=== PATIENT | female | born 1940 | race Caucasian/White ===

== ENCOUNTER 2016-11-14 10:20 | Emergency (ER) | payer OTHER ==
[2016-11-14 10:40] VITALS: BP 130/100
--- NOTE | 2016-11-14 10:44 | UC ---
Respiratory Complaint HPI - HPI Summary HPI Summary: ONSET OF SOB, COARSE COUGH AND WHEEZE YESTERDAY. REMOTE H/O SMOKING. HAS SOME CHEST TIGHTNESS. H/O AFIB. NO FEVER. O2SAT 87% AFTER WALKING IN HERE. 90% AT REST. - History of Current Complaint Chief Complaint: UCRespiratory Stated Complaint: DIFFICULTY BREATHING Time Seen by Provider: 11/14/16 10:43 Hx Obtained From: Patient, Family/Kettle Worker - DAUGHTERS Onset/Duration: Sudden Onset, Lasting Days, Still Present Timing: Constant Severity Initially: Moderate Severity Currently: Moderate Pain Intensity: 0 Pain Scale Used: 0-10 Numeric Character: Cough: Productive Aggravating Factors: Deep Breaths Alleviating Factors: Nothing Associated Signs And Symptoms: Positive: Dyspnea, Wheezing - Allergies/Home Medications Allergies/Adverse Reactions: Allergies Allergy/AdvReac Type Severity Reaction Status Date / Time No Known Allergies Allergy Verified 11/14/16 10:25 PMH/Surg Hx/FS Hx/Imm Hx Endocrine History Of: Reports: Thyroid Disease, Hypothyroidism Cardiovascular History Of: Reports: Cardiac Disorders - stents, Hypertension, Atrial Fibrillation - Surgical History Surgical History: Yes Surgery Procedure, Year, and Place: stents x2 - 2000. left carotid repair - 2001 - Family History Known Family History: Positive: Cardiac Disease, Hypertension, Other - CVA - Social History Alcohol Use: None Substance Use Type: None Smoking Status (MU): Former Smoker Have You Smoked in the Last Year: No When Did the Patient Quit Smoking/Using Tobacco: 15 years ago Review of Systems Constitutional: Fatigue Respiratory: Shortness Of Breath, Cough Cardiovascular: Negative Gastrointestinal: Negative All Other Systems Reviewed And Are Negative: Yes Physical Exam Triage Information Reviewed: Yes Appearance: No Pain Distress, Well-Nourished, Ill-Appearing - MILDLY ILL APPEARING. PALE Vital Signs: Initial Vital Signs Temp 98.6 F 11/14/16 10:28 Pulse 112 11/14/16 10:28 Resp 20 11/14/16 10:28 BP 130/100 11/14/16 10:28 Pulse Ox 90 11/14/16 10:28 Eyes: Positive: Conjunctiva Clear ENT: Positive: Hearing grossly normal Neck: Positive: Supple Respiratory: Positive: No respiratory distress, No accessory muscle use, Decreased breath sounds - LEFT BASE, Wheezing Cardiovascular: Positive: Tachycardia - IRREGULARLY IRREGULAR Abdomen Description: Positive: Soft Musculoskeletal: Positive: No Edema Neurological: Positive: Alert Psychological: Positive: Normal Response To Family, Age Appropriate Behavior Skin: Negative: rashes UC Diagnostic Evaluation - Laboratory O2 Sat by Pulse Oximetry: 90 - EKG Cardiac Rate: Tachycardia - 112 BPM Cardiac Rhythm: AFib: Old - RVR Respiratory Course/Dx - Course Course Of Treatment: DISCUSSED TRANSFER TO ER BY AMBULANCE DUE TO HIGH RISK STATUS - HYPOXIA, AFIB WITH RVR. PT DECLINES. DAUGHTERS PRESENT AND ARE CONCERNED THAT AMBULANCE WOULD TRIGGER HER ANXIETY AND MAKES MATTERS WORSE. PT TO GO TO ER BY PRIVATE CAR - SIGN OUT AMA. - Differential Dx/Diagnosis Provider Diagnoses: SOB/HYPOXIA, AFIB WITH RVR - Physician Notification/Consults Discussed Patient Care With: WARREN MARTINEZ NP Time Discussed With Above Provider: 11:10 Discharge - Discharge Plan Condition: Fair Disposition: AGAINST MEDICAL ADVICE
== END 2016-11-14 11:10 | disposition left against medical advice (07) ==
LOC: UCEAST 10:20
DX: R06.02 Shortness of breath (principal); R09.02 Hypoxemia; I48.91 Unspecified atrial fibrillation; Z87.891 Personal history of nicotine dependence
CPT/HCPCS: 93005; 99212; G0463

== ENCOUNTER 2016-11-14 11:30 | Observation (INO) | payer OTHER ==
[2016-11-14] MEDS ORDERED: methylPREDNISolone 125 MG* 2 ML VIAL IV ONE (12:22)
[2016-11-14] MEDS: Albuterol/Ipratropium NEB.SOL* Albuterol 2.5 MG/Ipratropium 0.5 MG 3 ML INH SCH ×2 (12:41→12:42)
[2016-11-14 12:43] LABS: Hematocrit 44 % (35-47); Hemoglobin 14.3 g/dl (12.0-16.0); Mean Corpuscular HGB Conc 33 g/dl (31-36); Mean Corpuscular Hemoglobin 31 pg (27-31); Mean Corpuscular Volume 95 fL (80-97); Mean Platelet Volume 9 um3 (7.4-10.4); Red Blood Count 4.57 10^6/ul (4.0-5.4); Red Cell Distribution Width 14 % (10.5-15)
--- NOTE | 2016-11-14 12:43 | RAD ---
INDICATION: Short of breath COMPARISON: None TECHNIQUE: PA and lateral dual-energy views were obtained. FINDINGS: Bones/Soft Tissues: There are no acute bony findings. There is osteopenia with kyphosis Cardiomediastinal: The cardiomediastinal silhouette is normal. Lungs: There are no infiltrates. Pleura: There are no pleural effusions. Other: None IMPRESSION: NO ACTIVE DISEASE.
[2016-11-14 12:46] LABS: Albumin 4.5 g/dL (3.2-5.2); BUN/Creatinine Ratio 19.2 (8-20); C Reactive Protein 25.76 mg/L (< 5.00); Calcium 9.6 mg/dL (8.6-10.3); EGFR Non-African American 77.7 (>60); Globulin 3.2 g/dL (2-4); Potassium 3.9 mmol/L (3.5-5.0); Total Bilirubin 0.8 mg/dL (0.2-1.0); Total Protein 7.7 g/dL (6.4-8.9)
[2016-11-14 12:48] LABS: Troponin I 0.01 ng/mL (<0.04)
[2016-11-14] MEDS ORDERED: Diltiazem DRIP* 100 MG/100 ML ADDV.BAG IVPB ONE (13:23)
[2016-11-14] MEDS ORDERED: Levofloxacin 750 MG IVPREMIX(* 750 MG/150 ML BAG IVPB ONE (13:39)
[2016-11-14] MEDS ORDERED: Acetaminophen TAB* 325 MG PO PRN (13:39)
[2016-11-14] MEDS ORDERED: Ondansetron INJ* 2 MG/ML VIAL IV PRN (13:39)
--- NOTE | 2016-11-14 14:48 | ED ---
Eladio Méndez Billy, scribed for Kush Pulliam MD on 11/14/16 at 1217 . Respiratory - HPI Summary HPI Summary: Patient is a 76 year-old female coming to [facility] presenting with intermittent SOB and wheezing starting 3 days. She states she will occasionally cough with deep breaths or when she "runs out of breath." Denies chest pain at this time. Denies history of COPD or asthma. - History of Current Complaint Chief Complaint: EDShortnessOfBreath Stated Complaint: DIFF BREATHING Time Seen by Provider: 11/14/16 12:11 Hx Obtained From: Patient Onset/Duration: Gradual Onset, Lasting Days, Still Present Timing: Intermittent Episodes Lasting: Initial Severity: Moderate Current Severity: Moderate Character: Wheezing, Cough (Nonproductive), Dyspnea at Rest Sputum Amount: None Aggravating Factor(s): Deep Breaths Alleviating Factor(s): Nothing Associated Signs and Symptoms: SOB, Wheezing - Allergy/Home Medications Allergies/Adverse Reactions: Allergies Allergy/AdvReac Type Severity Reaction Status Date / Time No Known Allergies Allergy Verified 11/14/16 10:25 PMH/Surg Hx/FS Hx/Imm Hx Endocrine/Hematology History: Reports: Hx Thyroid Disease Cardiovascular History: Reports: Hx Hypertension - Surgical History Surgery Procedure, Year, and Place: stents x2 - 2000. left carotid repair - 2001 Infectious Disease History: No Infectious Disease History: Denies: Traveled Outside the [place] in Last 30 Days - Family History Known Family History: Positive: Cardiac Disease, Hypertension, Other - CVA - Social History Alcohol Use: None Substance Use Type: Reports: None Smoking Status (MU): Former Smoker Have You Smoked in the Last Year: No Review of Systems Negative: Fever, Chills Negative: Chest Pain Positive: Shortness Of Breath, Cough, Other - wheezing All Other Systems Reviewed And Are Negative: Yes Physical Exam - Summary Physical Exam Summary: VITAL SIGNS: Reviewed. GENERAL: Patient is an elderly fragile female with some distress secondary to the shortness of breath. However, she is able to speak in full sentences. HEAD AND FACE: Normocephalic and atraumatic. EYES: PERRLA, EOMI x 2, No injected conjunctiva. EARS: Hearing grossly intact. Ear canals and tympanic membranes WNL MOUTH: Dry oral mucosa. NECK: Supple, trachea is midline, no adenopathy, no JVD, no carotid bruit. CHEST: Symmetric, No intercostal or abdominal retraction, LUNGS: Diffuse bilateral wheezing and decreased breath sounds and positive bilateral basilar crackles. CVS: IRR,, S1 and S2 present, no murmurs or gallops appreciated. ABDOMEN: Soft, non-tender. No signs of distention. Positive BS. No rebound, no guarding, and no masses palpated. EXTREMITIES: FROM in all major joints, no edema, no cyanosis or clubbing. NEURO: Alert and oriented x 3. No acute neurological deficits. Speech is normal and follows commands. SKIN: Dry and warm Triage Information Reviewed: Yes Vital Signs On Initial Exam: Initial Vitals Temp Pulse Resp BP Pulse Ox 97.9 F 63 16 156/98 94 11/14/16 11:30 11/14/16 11:30 11/14/16 11:30 11/14/16 11:30 11/14/16 11:30 Vital Signs Reviewed: Yes - [place] Coma Scale Coma Scale Total: 15 Diagnostics - Vital Signs Vital Signs Temp Pulse Resp BP Pulse Ox 11/14/16 11:30 97.9 F 63 16 156/98 94 - Laboratory Lab Results: Lab Results 11/14/16 11/14/16 11/14/16 Range/Units 11:49 11:49 11:49 WBC 16.0 H (3.5-10.8) 10^3/ul RBC 4.57 (4.0-5.4) 10^6/ul Hgb 14.3 (12.0-16.0) g/dl Hct 44 (35-47) % MCV 95 (80-97) fL MCH 31 (27-31) pg MCHC 33 (31-36) g/dl RDW 14 (10.5-15) % Plt Count 288 (150-450) 10^3/ul MPV 9 (7.4-10.4) um3 Neut % (Auto) 86.3 H (38-83) % Lymph % (Auto) 5.9 L (25-47) % [place] % (Auto) 7.1 (1-9) % Eos % (Auto) 0.2 (0-6) % Baso % (Auto) 0.5 (0-2) % Absolute Neuts (auto) 13.8 H (1.5-7.7) 10^3/ul Absolute Lymphs (auto) 0.9 L (1.0-4.8) 10^3/ul Absolute Monos (auto) 1.1 H (0-0.8) 10^3/ul Absolute Eos (auto) 0 (0-0.6) 10^3/ul Absolute Basos (auto) 0.1 (0-0.2) 10^3/ul Absolute Nucleated RBC 0.01 10^3/ul Nucleated RBC % 0 Sodium 132 L (133-145) mmol/L Potassium 3.9 (3.5-5.0) mmol/L Chloride 97 L (101-111) mmol/L Carbon Dioxide 29 (22-32) mmol/L Anion Gap 6 (2-11) mmol/L BUN 14 (6-24) mg/dL Creatinine 0.73 (0.51-0.95) mg/dL Est GFR ( Amer) 100.0 (>60) Est GFR (Non-Af Amer) 77.7 (>60) BUN/Creatinine Ratio 19.2 (8-20) Glucose 133 H (70-100) mg/dL Lactic Acid 1.4 (0.5-2.0) mmol/L Calcium 9.6 (8.6-10.3) mg/dL Total Bilirubin 0.80 (0.2-1.0) mg/dL AST 23 (13-39) U/L ALT 22 (7-52) U/L Alkaline Phosphatase 97 (34-104) U/L Total Creatine Kinase 163 (10-223) U/L Troponin I 0.01 (<0.04) ng/mL C-Reactive Protein 25.76 H (< 5.00) mg/L Total Protein 7.7 (6.4-8.9) g/dL Albumin 4.5 (3.2-5.2) g/dL Globulin 3.2 (2-4) g/dL Albumin/Globulin Ratio 1.4 (1-3) Result Diagrams: 11/14/16 11:49 11/14/16 11:49 Lab Statement: Any lab studies that have been ordered have been reviewed, and results considered in the medical decision making process. - Radiology CXR Xray Interpretation: No Acute Changes Radiology Interpretation Completed By: Radiologist - EKG 1143 EKG Interpretation: afib 116 bpm with RVR, no ST elevation Re-Evaluation - Re-Evaluation First Eval Re-Evaluation Time: 13:43 Comment: Plan for admission reviewed. Labs and imaging discussed. Disposition - Course Assessment/Plan: Patient is a 76 year-old female coming to [facility] presenting with intermittent SOB and wheezing starting 3 days. She states she will occasionally cough with deep breaths or when she "runs out of breath." Denies chest pain at this time. Denies history of COPD or asthma. Bloodwork WNL except for WBC of 16 and CRP of 25. BNP is 375 and sodium 132. CXR shows no acute pathology. EKG shows afib with RVR. Physical exam: patient is wheezing and has some crackles in the bases, therefore I placed patient on Levaquin. I believe she may be developing pneumonia vs bronchitis. She is also in afib with RVR so she was given cardiazem. I discussed my physical exam findings with Dr. Stinson who will accept the patient for admission to the hospitalist services. She is alert and oriented x3 and hemodynamically stable. - Differential Dx - Cardiopulmonary Differential Diagnoses - Cardiopulmonary: Asthma, Bronchitis, CHF, Other - Pneumonia - Diagnoses Provider Diagnoses: clinical pneumonia, Atrial fibrillation with RVR - Physician Notifications Discussed Care Of Patient With: Dr. Stinson (hospitalist) @ 1338: accepts admission. Discharge - Discharge Plan Condition: Stable Disposition: ADMITTED TO [facility] The documentation as recorded by the Eladio lynn Billy accurately reflects the service I personally performed and the decisions made by me, Kush Pulliam MD.
[2016-11-14] MEDS ORDERED: Metoprolol Tartrate IV* 1 MG/ML 5 ML VIAL IV ONE (16:44)
[2016-11-14] MEDS ORDERED: Albuterol/Ipratropium NEB.SOL* Albuterol 2.5 MG/Ipratropium 0.5 MG 3 ML INH PRN (16:46)
[2016-11-14] MEDS: NS 0.9% 1000 ML* 1,000 ML IV SCH (18:26)
[2016-11-14] MEDS: Diltiazem TAB* 30 MG PO SCH (18:26)
[2016-11-14] MEDS: Heparin VIAL(*) 5000 UNITS/ML VIAL (FIVE THOUSAND) SUBCUT SCH (21:48)
[2016-11-14] MEDS: Docusate CAP* 100 MG PO SCH (21:48)
[2016-11-15] MEDS: Diltiazem TAB* 30 MG PO SCH ×3 (00:40→12:50)
[2016-11-15 04:28] LABS: Urine Bacteria Absent (Absent); Urine Bilirubin Negative (Negative); Urine Glucose Negative (Negative); Urine Nitrite Negative (Negative)
[2016-11-15] MEDS: Heparin VIAL(*) 5000 UNITS/ML VIAL (FIVE THOUSAND) SUBCUT SCH (05:33)
[2016-11-15 05:36] LABS: Hematocrit 41 % (35-47); Hemoglobin 13.2 g/dl (12.0-16.0); Mean Corpuscular HGB Conc 33 g/dl (31-36); Mean Corpuscular Hemoglobin 31 pg (27-31); Mean Corpuscular Volume 94 fL (80-97); Mean Platelet Volume 10 um3 (7.4-10.4); Red Cell Distribution Width 14 % (10.5-15); White Blood Count 13.6 10^3/ul (3.5-10.8)
[2016-11-15 05:47] LABS: Albumin 4.1 g/dL (3.2-5.2); BUN/Creatinine Ratio 19.7 (8-20); Calcium 9.7 mg/dL (8.6-10.3); EGFR African American 103.2 (>60); EGFR Non-African American 80.3 (>60); Total Bilirubin 0.7 mg/dL (0.2-1.0); Total Protein 7.1 g/dL (6.4-8.9)
[2016-11-15 07:28] VITALS: BP 179/81
[2016-11-15] MEDS: Docusate CAP* 100 MG PO SCH (07:43)
[2016-11-15] MEDS ORDERED: Aspirin EC Low Dose* 81 MG TAB.EC PO SCH (09:00)
[2016-11-15] MEDS ORDERED: Metoprolol Succinate XL TAB* 50 MG PO SCH (09:00)
[2016-11-15] MEDS ORDERED: Levothyroxine TAB* 100 MCG TAB PO SCH (09:00)
[2016-11-15] MEDS ORDERED: Atorvastatin* 80 MG TAB PO SCH (09:00)
[2016-11-15] MEDS: NS 0.9% 1000 ML* 1,000 ML IV SCH (09:08)
--- NOTE | 2016-11-15 10:43 | RAD ---
INDICATION: Possible pneumonia COMPARISON: November 14, 2016 TECHNIQUE: An AP portable view obtained at 1030 hours is submitted. FINDINGS: Bones/Soft Tissues: There are no acute bony findings. Cardiomediastinal: The cardiomediastinal silhouette is mildly prominent. Lungs: There are no infiltrates. Pleura: There are no pleural effusions. Other: None IMPRESSION: NO ACTIVE DISEASE.
[2016-11-15] MEDS ORDERED: Albuterol HFA INHALER* 8 gm MDI INH PRN (11:29)
[2016-11-15] MEDS ORDERED: Albuterol HFA INHALER* 8 gm MDI INH ONE (11:31)
[2016-11-15 12:45] LABS: TSH (Thyroid Stimulating Horm) 1.83 mcIU/mL (0.34-5.60)
--- NOTE | 2016-11-15 20:40 | PN ---
Hospitalist Progress Note . HOSPITALIST DISCHARGE NOTE: See dc instructions and summary by me. Patient stable for dc dc instructions reviewed with the patient at the bedside. DC patient home today.
--- NOTE | 2016-11-15 23:54 | HP ---
HISTORY AND PHYSICAL AND DISCHARGE SUMMARY: DATE OF ADMISSION: 11/14/16 DATE OF DISCHARGE: 11/15/16 STATUS: Observation. CHIEF COMPLAINT: Shortness of breath - progressive with subsequently confusion during the hospitalization and concern for ongoing progressive dementia unmasked by her current illness. HISTORY OF PRESENT ILLNESS: Ms. Toure is a pleasant 76-year-old female who presented to the emergency room on 11/14/16 with progressive and intermittent shortness of breath with some wheezing over the past 3 days. In speaking with the patient, she states that she started not feeling herself since sometime after [place] and was very vague about the exact time of onset. She thinks she might have actually started feeling poorly after New Year's, but she could not be exactly sure. Certainly, for the past 10 days, she has been getting progressively more short of breath, but really in the past 3 days, has started getting worse with some wheezing, but not much. There was no fever. I asked the patient if she tried any [id number] therapies and she said she had not . The family had not noticed she was having any respiratory difficulty, but they did notice she was not eating her usual amount and she did complain of having less energy than normal. The patient also felt that her stomach might have been a little "off" and that she was not sleeping as well as she normally does. For all of these reasons and when she started feeling progressively short of breath on 11/14/16, the patient came to the [facility] ED and made the complaints above. The patient was found to be found quite tachycardic and in atrial fibrillation. It was noted the patient is in chronic atrial fibrillation and takes metoprolol and Coumadin and this is a chronic problem for her, but her rate was in the 130s and the patient felt quite short of breath. She was dosed with IV antibiotics (specifically IV Levaquin) and received IV steroids as well and was referred for admission to the hospitalist service on the evening of 11/14/16 and this was accomplished. The patient felt subjectively better after a DuoNeb therapy in the emergency room and the plan was for admission and stabilization through 11/16/16 giving her ample time for full recovery. PAST MEDICAL HISTORY: 1. Myocardial infarction greater than 10 years ago, treated at [facility]. 2. Carotid artery disease with left carotid artery repair in 2001. 3. Chronic atrial fibrillation with reference in the medical record back in 2011 and perhaps longer. 4. Hypothyroidism - on Synthroid replacement. No history of lung disease. No history of diabetes or history of pneumonia. The patient has no history of stroke or neurologic deficits. FAMILY HISTORY: It is positive for cardiac disease and hypertension on both sides of her family. The patient lives with her . She is a former smoker, but he has not smoked for years. She does not drink alcohol meaningfully and none recently and she is accompanied by her three children all of whom live in the area. They are in good health. Her surrogate decision maker is her daughter, Bree, who could be reached at [phone]. The patient is a full code. She handles all of her activities of daily living and all of her IADL's too. PHYSICAL EXAMINATION GENERAL APPEARANCE: A no apparent distress. appears stated age. VITAL SIGNS: Temperature 97.9 degrees Fahrenheit, pulse rate was 120s to 130s, in atrial fibrillation in the emergency room, respirations were 16 to 20 and regular. There was no extremis noted. Her oxygen saturation was preserved > 95 % on 2 L nasal cannula and her blood pressure was robust in the 120/80. HEENT: Oropharynx is clear. Mucous membranes are moist. No posterior pharyngeal erythema. NECK: Supple. No elevated JVD. I note the carotid artery surgery scar - clean dry and intact. No bruits appreciated. CHEST: Clear anteriorly without wheezing. I note the patient had a DuoNeb treatment in the emergency room and they reported she was breathing more easily after that. There was wheezing reported before that. She also received IV steroids, but she seemed in no distress to me and nor that I appreciate any wheezing. No rhonchorous sounds noted. good air movement overall. HEART: Tachy with irregular rate, confirmed by telemetry monitoring in room. No murmurs appreciated. ABDOMEN: Soft and nontender. EXTREMITIES: Well perfused and nonedematous. She had normal muscle tone. NEUROLOGIC: She was not exhibiting any neurologic deficits and she was in in good spirits and awake, alert and oriented x3. ADMISSION DATA: White blood cell count elevated 16.0, hemoglobin 14.3, platelets 288, 86% neutrophilia. Coagulation: INR 2.19 (on Coumadin). Sodium 132, potassium 3.9, chloride 97, bicarb 29, BUN 14, creatinine 0.73, glucose 133 (elevated). Lactic acid 1.4. LFTs normal. CRP elevated at 25.76, BNP 375 (elevated, no prior value to compare this). Total protein and albumin are 7.7 and 4.5, respectively. TSH 1.83. Urinalysis with 1+ rbc's, but trace wbc's and trace ketones. Chest x-ray showed no active disease in the pulmonary parenchyma. Generally unremarkable. Her EKG is atrial fibrillation at 116 beats per minute with no evidence of acute ischemia. IMPRESSION: Ms. Toure is a 76-year-old female with known atrial fibrillation who now presents with ongoing shortness of breath and weakness, malaise, difficulty sleeping, leukocytosis -- her wheezing improved after DuoNeb therapy -- and worsening of her atrial fibrillation rate control consistent with an inflammatory state who is appropriate for admission to the hospital to treat her respiratory infection and control her heart rate. She is accompanied by her concerned family who agree with admission. PLAN BY MEDICAL PROBLEM: 1. Acute Bronchitis vs Early Pneumonia without infiltrate. - Certainly, the white blood cell count and the tachycardia are consistent with perhaps a pneumonia although I do not seen an infiltrate on the chest x-ray. It may be the case that the patient is a bit dehydrated and it is early in the course and one may evolve. The patient already received antibiotics to include atypical coverage as well as IV steroids for concern of wheezing. I think it is appropriate to bring the patient into the hospital and have her in a monitored environment where she can receive further nebulizer treatment and undergo rehydration. 2. With respect to her atrial fibrillation, she is chronically in atrial fibrillation and anticoagulated. The rapid rate is probably the result of her respiratory illness and in treating the respiratory illness and rehydrating her , I believe this will slowly come under control. The emergency room started an IV Diltiazem drip and I will wean this off over the next few hours and I think she will do well with respect to this. Other medications will be continued including her thyroid replacement and further clinical decisions will be made based on her progress. CLINICAL PROGRESS AND HOSPITAL COURSE / DISCHARGE:SUMMARY On 11/15/16, overnight, did somewhat poorly. She had a difficult time sleeping and had some hallucinations and vivid dreams that were disturbing including her belief that she "wrecked her room" and she was quite confused to her family which they came in the next day. We had a long discussion about this and it is likely multifactorial including two of the medications she received including the IV steroids and the IV levofloxacin which both are known to cause confusion and even psychosis in the elderly. Beyond this, a respiratory infection itself could cause confusion in the elderly as can simply being in the hospital. The patient's atrial fibrillation responded nicely to the diltiazem. This was weaned off and the patient's labs all normalized with restorationism of a normal sodium and potassium concentration with normal renal function demonstrated and a decrease in her leukocytosis. Clinically, the patient's breathing is more comfortable. There was no wheezing appreciated overnight and nor that I personally appreciate any wheezing at admission, but she had already received DuoNebs and steroids. I agree to continue with the patient for a short course of antibiotics, but I will choose a different agent. We discussed Augmentin for 5 days and this seems like a reasonable choice with less tendency to cause confusion in the elderly. I am intentionally NOT going to continue steroids because she has no wheezing and the patient is entirely comfortable after only one dose in the emergency room and I think that might have contributed to her confusion. I think reorienting her in her normal setting will be s good idea. I placed a courtesy call to Dr. Frances Coles to report this and I asked the family, and in particular her daughter Perri, to arrange a FOLLOW UP appointment sometime this week with Dr. Coles for re- evaluation. In terms of her atrial fibrillation control, the patient can continue on 100 mg metoprolol in the outpatient setting and this was originally thought to represent an increase, but it was later found that the patient's usual dose of Toprol is indeed 100 mg by mouth in the evening. She only received 50 mg on the morning of 11/15/16 and did well with that from a rate perspective DISCHARGE DIAGNOSES: 1. Acute bronchitis with initial wheezing that resolved after steroids and DuoNebs. 2. Rapid atrial fibrillation in midst of respiratory distress - now rate controlled and already anticoagulated. 3. Hospital associated delirium with iatrogenic component secondary to Levaquin , steroids and unusual (hospital) environment. 4. Possibly mild dementia with tendency for delirium in setting of this acute illness. MEDICATION REGIMEN AT DISCHARGE: 1. Acetaminophen 650 mg by mouth every 4 hours as needed for pain/fever (over- the- counter). 2. Amoxicillin clavulanic acid (Augmentin) 875 mg by mouth twice daily for 5 days, then stop - electronically prescribed to her pharmacy - [facility]). 3. Albuterol inhaler 2 puffs every 4 hours as needed (prescribed in hospital and inhaler was given to the patient to take home along with a spacer). 4. Nitrostat 0.4 mg sublingually every 4 hours as needed for chest pain - only if needed. 5. B complex vitamin 1 tablet by mouth once daily. 6. Vitamin D3 one capsule by mouth once daily. 7. Levothyroxine 200 mcg by mouth daily. 8. Lipitor 80 mg by mouth daily. 9. Coumadin 5 mg by mouth daily. 10. Aspirin 81 mg by mouth daily. 11. Mavik/Trandolapril 4 mg by mouth daily. 12. Metoprolol 100 mg by mouth daily (as previously). Ms. Toure and her family were extensively counseled at discharge and asked to come back to the emergency room if there are any worrisome symptoms including , but not limited to worsening shortness of breath, high fevers, or worsening confusion that does not resolve with reorientation. They said they will comply with this instruction. TIME SPENT: Total time taken to admit Ms. Toure was 65 minutes, greater than half the time spent in the emergency room going over the admission and history with a plan of care discussed as above. The total time taken to discharge Ms. Toure on 11/15/16 was separately 45 minutes with much greater than half that time spent going over the discharge instructions and explaining the multifactorial nature of her in-hospital delirium. CONDITION ON DISCHARGE: Stable. [id number]/[facility] #: [id number] [facility]
== END 2016-11-15 13:25 | disposition home or self-care (01) ==
LOC: ED 11:30 → MEDTELE 13:39 → INTOOBSV 13:39
PROVIDERS: ADMIT Internal Medicine; ATTEND Internal Medicine
DX: J20.9 Acute bronchitis, unspecified (principal); R06.02 Shortness of breath; R00.1 Bradycardia, unspecified; I25.2 Old myocardial infarction; I25.10 Atherosclerotic heart disease of native coronary artery without angina pectoris; I10 Essential (primary) hypertension; I48.91 Unspecified atrial fibrillation; E03.9 Hypothyroidism, unspecified; Z79.01 Long term (current) use of anticoagulants; Z79.899 Other long term (current) drug therapy; Z95.5 Presence of coronary angioplasty implant and graft; Z87.891 Personal history of nicotine dependence; I49.3 Ventricular premature depolarization
CPT/HCPCS: 36415; 71010; 71020; 80053; 81003; 81015; 82550; 83605; 83880; 84443; 84484; 85025; 85610; 86140; 87040; 93005; 94640; 94760; 96365; 96372; 96375; 99212; 99284; A9270-GY; G0378; G0463; J1644; J2930; J3490

== ENCOUNTER 2019-01-10 20:45 | Emergency (ER) | payer OTHER ==
[2019-01-10] MEDS ORDERED: NS 0.9% 1000 ML** 1,000 ML IV ONE (21:11)
--- NOTE | 2019-01-10 21:31 | ED ---
GI/ HPI - HPI Summary HPI Summary: The patient is a 78 y/o F presenting to [facility] with a chief complaint of sudden onset loose diarrhea tonight around 1600. She had an urge to have a BM but couldn't make it to the bathroom in time. She later had smaller BMs, and was not incontinent at that time. She additionally c/o lightheadedness and diaphoresis. She denies fevers, chills, nausea, vomiting, abd pain, hematochezia , dysuria, and hematuria. Throughout the day, she ate normally, and she had taken two extra strength Tylenol for upper back pain (the patient's daughter called her PCP to confirm it was okay), which was prior to the episodes of diarrhea. She also fell two days ago, causing her to endure pain in her knees, especially the right one, which she has difficulty bearing weight on now; she did not hit her head. - History of Current Complaint Chief Complaint: EDNauseaVomitDiarrh Time Seen by Provider: 01/10/19 21:11 Stated Complaint: GENERAL ILLNESS PER EMS Hx Obtained From: Patient Onset/Duration: Started Hours Ago, Still Present Timing: Lasting Hours Severity: Moderate Current Severity: Mild Pain Intensity: 0 Associated Signs and Symptoms: Positive: Back Pain - upper, Diarrhea, Diaphoresis, Lightheadedness, Other: - difficulty with weight-bearing on right knee. Negative: Nausea, Vomiting, Blood w/Stool, Fever, Hematuria, Dysuria, Change in Appetite, Chills, Abdominal Pain Aggravating Factor(s): Nothing Alleviating Factor(s): Nothing - Allergy/Home Medications Allergies/Adverse Reactions: Allergies Allergy/AdvReac Type Severity Reaction Status Date / Time No Known Allergies Allergy Verified 11/14/16 10:25 PMH/Surg Hx/FS Hx/Imm Hx Endocrine/Hematology History: Reports: Hx Thyroid Disease - hypothyroid Cardiovascular History: Reports: Hx Hypercholesterolemia, Hx Hypertension, Other Cardiovascular Problems/Disorders - 2x stents, 2x IA Sensory History: Reports: Hx Contacts or Glasses Opthamlomology History: Reports: Hx Contacts or Glasses - Surgical History Surgery Procedure, Year, and Place: stents x2 - 2000. left carotid repair - 2001 Infectious Disease History: No Infectious Disease History: Denies: Traveled Outside the [place] in Last 30 Days - Family History Known Family History: Positive: Cardiac Disease, Hypertension, Other - CVA - Social History Alcohol Use: Rare Substance Use Type: Reports: None Smoking Status (MU): Former Smoker Have You Smoked in the Last Year: No Review of Systems Positive: Skin Diaphoresis. Negative: Fever, Chills Positive: Diarrhea - with one episode of incontinence, Other - NEGATIVE: hematochezia. Negative: Abdominal Pain, Vomiting, Nausea Negative: dysuria, hematuria Positive: Other - upper back pain, pain in right knee s/p fall two days ago Neurological: Other - lightheaded All Other Systems Reviewed And Are Negative: Yes Physical Exam - Summary Physical Exam Summary: Appearance: Well-appearing, Well-nourished, lying in bed comfortably Skin: Warm, dry, no obvious rash Eyes: sclera anicteric, no conjunctival pallor ENT: mucous membranes moist, pharynx appears normal Neck: Supple, nontender Respiratory: Clear to auscultation, no signs of respiratory distress Cardiovascular: Normal S1, S2. No murmurs. Normal distal pulses in tibial and radial bilaterally. Abdomen: Soft, nontender, normal active bowel sounds present Musculoskeletal: Normal, Strength/ROM Intact Neurological: A&Ox3, awake and alert, mentation is normal, speech is fluent and appropriate Psychiatric: affect is normal, does not appear anxious or depressed Triage Information Reviewed: Yes Vital Signs On Initial Exam: Initial Vitals Temp Pulse Resp BP Pulse Ox 99 F 87 16 134/78 98 01/10/19 20:50 01/10/19 20:50 01/10/19 20:50 01/10/19 20:50 01/10/19 20:50 Vital Signs Reviewed: Yes Diagnostics - Vital Signs Vital Signs Temp Pulse Resp BP Pulse Ox 01/10/19 20:50 99 F 87 16 134/78 98 - Laboratory Result Diagrams: 01/10/19 21:28 01/10/19 21:28 Lab Statement: Any lab studies that have been ordered have been reviewed, and results considered in the medical decision making process. - Radiology Knee XR Radiology Interpretation Completed By: Radiologist Summary of Radiographic Findings: No facture present. ED physician has reviewed this report. Re-Evaluation - Re-Evaluation First Eval Re-Evaluation Time: 02:00 Change: Unchanged Comment: I spoke with the patient and her family concerning discharge. GIGU Course/Dx - Course Course Of Treatment: The patient is a 78 y/o F with a chief complaint of sudden onset loose diarrhea tonight around 1600. She additionally c/o lightheadedness and diaphoresis. She denies fevers, chills, nausea, vomiting, abd pain, hematochezia, dysuria, and hematuria. Throughout the day, she ate normally, and she took two extra strength Tylenol for upper back pain, prior to diarrhea. She has difficulty bearing weight on her right knee after falling two days ago. Upon physical exam, the patient exhibits no acute abnormalities. In the ED course, the patient was administered Ns and Macrodantin. Bloodwork reveals slightly elevated monos, creatinine, and glucose. UA reveals trace ketones, blood leukocyte esterase, and hyaline casts. Knee XR is negative. The patient is diagnosed with UTI and knee sprain. She will be discharged home with prescription for Nitrofurantoin and follow up with PCP. She agrees with this plan and understands the need for return to the emergency department for any new or worsening symptoms. - Diagnoses Provider Diagnoses: Knee sprain, UTI (urinary tract infection) Discharge - Sign-Out/Discharge Documenting (check all that apply): Patient Departure - Patient will be discharged home. Patient Received Moderate/Deep Sedation with Procedure: No - Discharge Plan Condition: Good Disposition: HOME Prescriptions: Nitrofurantoin Macrocrystal [Nitrofurantoin] 100 mg PO BID 7 Days #14 capsule Patient Education Materials: Knee Sprain (ED), Urinary Tract Infection in Women (ED), Fall Prevention for Older Adults (ED) Referrals: Frances Coles MD [Primary Care Provider] - 3 Days (to check on status of the urine culture, particularly if not improving) Additional Instructions: Follow up with your primary care provider in 3 days. Return to the emergency department for any new or worsening symptoms. - Billing Disposition and Condition Condition: GOOD Disposition: Home - Attestation Statements Document Initiated by Scribe: Yes Documenting Scribe: Renetta James Provider For Whom Clara is Documenting (Include Credential): Dr. Bro Adam MD Scribe Attestation: Renetta Méndez scribed for Dr. Bro Adam MD on 01/11/19 at 0451. Scribe Documentation Reviewed: Yes Provider Attestation: The documentation as recorded by the Renetta lynn accurately reflects the service I personally performed and the decisions made by me, Dr. Bro Adam MD Status of Scribe Document: Viewed
[2019-01-10 21:43] LABS: ABS Basophils 0.1 10^3/ul (0-0.2); ABS Eosinophils 0 10^3/ul (0-0.6); ABS Lymphocytes 0.8 10^3/ul (1.0-4.8); ABS Monocytes 1.3 10^3/ul (0-0.8); ABS Neutrophils 9.2 10^3/ul (1.5-7.7); ABS Nucleated RBC 0 10^3/ul; Eosinophil % 0.3 %; Hematocrit 43 % (35-47); Hemoglobin 14.2 g/dl (12.0-16.0); Lymphocyte % 6.8 %; Mean Corpuscular HGB Conc 33 g/dl (31-36); Mean Corpuscular Hemoglobin 32 pg (27-31); Mean Corpuscular Volume 96 fL (80-97); Mean Platelet Volume 8.7 fL (7.4-10.4); Nucleated Red Blood Cells % 0; Platelet Count 324 10^3/ul (150-450); Red Blood Count 4.45 10^6/ul (4.00-5.40); Red Cell Distribution Width 14 % (10.5-15); White Blood Count 11.3 10^3/ul (3.5-10.8)
[2019-01-10 21:54] LABS: Albumin/Globulin Ratio 1.4 (1-3); BUN/Creatinine Ratio 17.1 (8-20); Calcium 9.5 mg/dL (8.6-10.3); EGFR African American 51.2 (>60); EGFR Non-African American 42.3 (>60); Globulin 2.8 g/dL (2-4); Magnesium 1.9 mg/dL (1.9-2.7); Potassium 3.8 mmol/L (3.5-5.0); Total Bilirubin 0.5 mg/dL (0.2-1.0); Total Protein 6.8 g/dL (6.4-8.9)
[2019-01-11 02:05] LABS: Urine Appearance Cloudy; Urine Bacteria Absent (Absent); Urine Bilirubin Negative (Negative); Urine Blood 2+ (Negative); Urine Color Yellow; Urine Glucose Negative (Negative); Urine Ketones Trace (Negative); Urine Nitrite Negative (Negative); Urine Protein Negative (Negative); Urine Red Blood Cell Trace(0-2/hpf) (Absent); Urine Specific Gravity 1.016 (1.010-1.030); Urine Urobilinogen Negative (Negative); Urine White Blood Cell Trace(0-5/hpf) (Absent)
[2019-01-11] MEDS ORDERED: Nitrofurantoin Macrocrystals* 100 MG CAP PO ONE (02:36)
[2019-01-11 03:41] VITALS: BP 129/72
== END 2019-01-11 03:31 | disposition home or self-care (01) ==
LOC: ED 20:45
DX: S83.91XA Sprain of unspecified site of right knee, initial encounter (principal); N39.0 Urinary tract infection, site not specified; R19.7 Diarrhea, unspecified; M54.9 Dorsalgia, unspecified; R42 Dizziness and giddiness; Z87.891 Personal history of nicotine dependence; W19.XXXA Unspecified fall, initial encounter; Y92.9 Unspecified place or not applicable
CPT/HCPCS: 36415; 80053; 81003; 81015; 83735; 85025; 87086; 99283; A9270-GY

== ENCOUNTER 2020-05-11 21:04 | Inpatient (IN) ==
[2020-05-11] MEDS ORDERED: NS 0.9% 1000 ml BAG 1,000 ML IV ONE (21:08)
[2020-05-11 21:41] LABS: ABS Eosinophils 0.3 10^3/ul (0-0.6); ABS Lymphocytes 0.4 10^3/ul (1.0-4.8); ABS Monocytes 0.9 10^3/ul (0-0.8); Eosinophil % 2.7 %; Hematocrit 42 % (35-47); Hemoglobin 14.2 g/dL (12.0-16.0); Lymphocyte % 3.4 %; Mean Corpuscular HGB Conc 34 g/dL (31-36); Mean Corpuscular Hemoglobin 32 pg (27-31); Mean Corpuscular Volume 94 fL (80-97); Mean Platelet Volume 8.5 fL (7.4-10.4); Platelet Count 222 10^3/uL (150-450); Red Blood Count 4.44 10^6 /uL (3.70-4.87); Red Cell Distribution Width 14 % (10-15); White Blood Count 12.7 10^3/uL (3.5-10.8)
[2020-05-11 21:58] LABS: Albumin 4.1 g/dL (3.2-5.2); Albumin/Globulin Ratio 1.4 (1-3); BUN/Creatinine Ratio 16.5 (8-20); Calcium 9.5 mg/dL (8.6-10.3); EGFR African American 72.3 (>60); EGFR Non-African American 59.8 (>60); Globulin 2.9 g/dL (2-4); Magnesium 1.5 mg/dL (1.9-2.7); Potassium 3.6 mmol/L (3.5-5.0); Total Bilirubin 0.8 mg/dL (0.2-1.0)
[2020-05-11 21:59] LABS: Troponin I 0.01 ng/mL (<0.03)
[2020-05-11] MEDS ORDERED: cefTRIAXone 1 gm/50 mL NS BAG 1 GM/50 ML BAG IV ONE (22:17)
[2020-05-11 22:18] LABS: TSH (Thyroid Stimulating Horm) 1.65 mcIU/mL (0.34-5.60)
[2020-05-11 22:20] LABS: Urine Appearance Clear; Urine Bilirubin Negative (Negative); Urine Blood 2+ (Negative); Urine Color Amber; Urine Glucose Negative (Negative); Urine Ketones Negative (Negative); Urine Nitrite Positive (Negative); Urine Protein 1+(30 mg/dL) (Negative); Urine Specific Gravity 1.014 (1.010-1.030); Urine Urobilinogen Positive (Negative)
[2020-05-11 22:23] LABS: Urine Bacteria Absent (Absent); Urine Red Blood Cell 3+(>10/hpf) (Absent); Urine Squamous Epithelial Cell Present (Absent); Urine White Blood Cell Trace(0-5/hpf) (Absent)
[2020-05-11] MEDS ORDERED: Ondansetron 4 mg VIAL 2 MG/ML 2 ml VIAL IV PRN (23:25)
[2020-05-11] MEDS ORDERED: NS 0.9% 1000 ml BAG 1,000 ML IV SCH (23:30)
[2020-05-11] MEDS ORDERED: Magnesium Sulfate 2 gm BAG 2 GM/50 ML BAG IVPB ONE (23:36)
[2020-05-11] MEDS ORDERED: Enoxaparin 40 MG/0.4 ML SYR(*) SUBCUT SCH (23:45)
[2020-05-11 23:46] LABS: INR 4.51 (0.82-1.09)
[2020-05-11 23:56] LABS: C Reactive Protein 51.87 mg/L (<8.01)
[2020-05-12 05:57] LABS: ABS Basophils 0.1 10^3/ul (0-0.2); ABS Eosinophils 0.8 10^3/ul (0-0.6); ABS Lymphocytes 0.9 10^3/ul (1.0-4.8); ABS Monocytes 0.9 10^3/ul (0-0.8); Eosinophil % 7.4 %; Hematocrit 41 % (35-47); Hemoglobin 13.7 g/dL (12.0-16.0); INR 4.48 (0.82-1.09); Mean Corpuscular HGB Conc 34 g/dL (31-36); Mean Corpuscular Hemoglobin 32 pg (27-31); Mean Corpuscular Volume 94 fL (80-97); Mean Platelet Volume 8.6 fL (7.4-10.4); Nucleated Red Blood Cells % 0.1; Platelet Count 218 10^3/uL (150-450); Red Blood Count 4.32 10^6 /uL (3.70-4.87); Red Cell Distribution Width 14 % (10-15); White Blood Count 10.7 10^3/uL (3.5-10.8)
[2020-05-12 06:08] LABS: Calcium 9.4 mg/dL (8.6-10.3); EGFR African American 83.9 (>60); EGFR Non-African American 69.4 (>60); Potassium 3.5 mmol/L (3.5-5.0)
[2020-05-12] MEDS: Aspirin EC 81 mg TAB.EC (enteric coated) PO SCH (08:23)
[2020-05-12] MEDS ORDERED: LEVOTHYROXINE SODIUM 200 MCG PO SCH (09:00)
[2020-05-12] MEDS ORDERED: TRANDOLAPRIL 4 MG PO SCH (09:00)
[2020-05-12] MEDS ORDERED: Lorazepam PYXIS KEY ONE (09:18)
[2020-05-12] MEDS ORDERED: Lorazepam PYXIS KEY PRN (13:59)
[2020-05-12] MEDS: LORazepam 2 mg VIAL 1 ml IV PUSH PRN (18:13)
[2020-05-12] MEDS: cefTRIAXone 1 gm/50 mL NS BAG 1 GM/50 ML BAG IVPB SCH (19:53)
[2020-05-13] MEDS: Aspirin EC 81 mg TAB.EC (enteric coated) PO SCH (08:46)
[2020-05-13] MEDS: LORazepam 2 mg VIAL 1 ml IV PUSH PRN (11:12)
[2020-05-13 13:19] LABS: ABS Basophils 0.1 10^3/ul (0-0.2); ABS Eosinophils 0.8 10^3/ul (0-0.6); ABS Lymphocytes 0.7 10^3/ul (1.0-4.8); Eosinophil % 6.7 %; Hematocrit 40 % (35-47); Hemoglobin 13.8 g/dL (12.0-16.0); Lymphocyte % 6.5 %; Mean Corpuscular HGB Conc 34 g/dL (31-36); Mean Corpuscular Hemoglobin 32 pg (27-31); Mean Corpuscular Volume 95 fL (80-97); Mean Platelet Volume 8.7 fL (7.4-10.4); Platelet Count 213 10^3/uL (150-450); Red Blood Count 4.27 10^6 /uL (3.70-4.87); Red Cell Distribution Width 14 % (10-15); White Blood Count 11.3 10^3/uL (3.5-10.8)
[2020-05-13 13:36] LABS: INR 3.55 (0.82-1.09)
[2020-05-13 13:38] LABS: BUN/Creatinine Ratio 13.1 (8-20); Calcium 9.5 mg/dL (8.6-10.3); EGFR African American 79.3 (>60); EGFR Non-African American 65.6 (>60); Magnesium 1.8 mg/dL (1.9-2.7); Potassium 3.9 mmol/L (3.5-5.0)
[2020-05-14] LABS: C Reactive Protein 65.92 mg/L (<8.01)
[2020-05-14] MEDS ORDERED: cefTRIAXone VIAL 1,000 MG VIAL IM ONE (00:20)
[2020-05-14] MEDS: cefTRIAXone 1 gm/50 mL NS BAG 1 GM/50 ML BAG IVPB SCH (01:46)
[2020-05-14 09:03] LABS: ABS Basophils 0.1 10^3/ul (0-0.2); ABS Eosinophils 0.3 10^3/ul (0-0.6); ABS Lymphocytes 1.1 10^3/ul (1.0-4.8); ABS Monocytes 1.2 10^3/ul (0-0.8); Hematocrit 40 % (35-47); Hemoglobin 13.6 g/dL (12.0-16.0); Lymphocyte % 12.1 %; Mean Corpuscular HGB Conc 35 g/dL (31-36); Mean Corpuscular Hemoglobin 32 pg (27-31); Mean Corpuscular Volume 93 fL (80-97); Mean Platelet Volume 8.5 fL (7.4-10.4); Nucleated Red Blood Cells % 0.1; Platelet Count 218 10^3/uL (150-450); Red Blood Count 4.24 10^6 /uL (3.70-4.87); Red Cell Distribution Width 14 % (10-15); White Blood Count 9.2 10^3/uL (3.5-10.8)
[2020-05-14 09:23] LABS: INR 2.04 (0.82-1.09)
[2020-05-14 09:25] LABS: BUN/Creatinine Ratio 12.2 (8-20); Calcium 8.9 mg/dL (8.6-10.3); EGFR African American 91.8 (>60); EGFR Non-African American 75.9 (>60); Magnesium 1.6 mg/dL (1.9-2.7); Potassium 3.6 mmol/L (3.5-5.0)
[2020-05-14] MEDS: Aspirin EC 81 mg TAB.EC (enteric coated) PO SCH (10:03)
[2020-05-14 16:56] LABS: INR 1.95 (0.82-1.09)
[2020-05-14] MEDS ORDERED: cefTRIAXone 1 gm/50 mL NS BAG 1 GM/50 ML BAG IVPB ONE (21:38)
[2020-05-15] MEDS: Aspirin EC 81 mg TAB.EC (enteric coated) PO SCH (08:53)
[2020-05-15 09:26] LABS: ABS Eosinophils 0.2 10^3/ul (0-0.6); ABS Lymphocytes 1.1 10^3/ul (1.0-4.8); ABS Monocytes 1.1 10^3/ul (0-0.8); Eosinophil % 2.4 %; Hematocrit 39 % (35-47); Hemoglobin 13.6 g/dL (12.0-16.0); Lymphocyte % 11.5 %; Mean Corpuscular HGB Conc 35 g/dL (31-36); Mean Corpuscular Hemoglobin 33 pg (27-31); Mean Corpuscular Volume 94 fL (80-97); Mean Platelet Volume 8.9 fL (7.4-10.4); Platelet Count 231 10^3/uL (150-450); Red Blood Count 4.17 10^6 /uL (3.70-4.87); Red Cell Distribution Width 13 % (10-15); White Blood Count 9.8 10^3/uL (3.5-10.8)
[2020-05-15 09:45] LABS: BUN/Creatinine Ratio 14.5 (8-20); C Reactive Protein 184.08 mg/L (<8.01); Calcium 8.9 mg/dL (8.6-10.3); EGFR African American 89.1 (>60); EGFR Non-African American 73.6 (>60); Magnesium 1.6 mg/dL (1.9-2.7); Potassium 3.6 mmol/L (3.5-5.0)
[2020-05-15] MEDS ORDERED: Magnesium Sulfate IV 3 GM in NS 0.9% 100 ml BAG 100 ML IVPB ONE (09:58)
[2020-05-15] MEDS ORDERED: Iohexol 300 (CONTRAST) 10 ML SDV IV ONE (13:16)
[2020-05-15 15:15] LABS: Uric Acid 3.6 mg/dL (2.3-6.6)
[2020-05-15 16:58] LABS: Urine Appearance Cloudy; Urine Bilirubin Negative (Negative); Urine Blood 2+ (Negative); Urine Color Yellow; Urine Glucose Negative (Negative); Urine Ketones Negative (Negative); Urine Nitrite Negative (Negative); Urine Protein Negative (Negative); Urine Specific Gravity 1.048 (1.010-1.030); Urine Urobilinogen Negative (Negative)
[2020-05-15 17:17] LABS: Urine Bacteria Absent (Absent); Urine Red Blood Cell 1+(3-5/hpf) (Absent); Urine Squamous Epithelial Cell Present (Absent); Urine White Blood Cell Absent (Absent)
[2020-05-15] MEDS: cefTRIAXone 2 GM ADDV.VIAL 2 GM in NS 0.9% 100 ml BAG 100 ML IV SCH (20:58)
[2020-05-15] MEDS: Senna TAB 8.6 mg TAB PO PRN (22:59)
[2020-05-16 07:06] LABS: Hematocrit 37 % (35-47); Hemoglobin 12.9 g/dL (12.0-16.0); Mean Corpuscular HGB Conc 35 g/dL (31-36); Mean Corpuscular Hemoglobin 33 pg (27-31); Mean Corpuscular Volume 93 fL (80-97); Mean Platelet Volume 9.4 fL (7.4-10.4); Platelet Count 236 10^3/uL (150-450); Red Blood Count 3.95 10^6 /uL (3.70-4.87); Red Cell Distribution Width 13 % (10-15); White Blood Count 10.6 10^3/uL (3.5-10.8)
[2020-05-16 07:33] LABS: BUN/Creatinine Ratio 16.9 (8-20); C Reactive Protein 189.9 mg/L (<8.01); Calcium 8.8 mg/dL (8.6-10.3); EGFR African American 87.7 (>60); EGFR Non-African American 72.5 (>60); Magnesium 2.1 mg/dL (1.9-2.7); Potassium 3.6 mmol/L (3.5-5.0)
[2020-05-16 08:11] LABS: ABS Basophils 0.1 10^3/ul (0-0.2); ABS Eosinophils 0.3 10^3/ul (0-0.6); ABS Lymphocytes 1.7 10^3/ul (1.0-4.8); ABS Monocytes 1.6 10^3/ul (0-0.8); Eosinophil % 2.5 %; Lymphocyte % 16.4 %
[2020-05-16 10:27] LABS: Body Fluid Source Synovial Fluid
[2020-05-16] MEDS: Aspirin EC 81 mg TAB.EC (enteric coated) PO SCH (11:51)
[2020-05-16 12:07] LABS: Body Fluid Mono 2 %
[2020-05-16 13:21] LABS: Uric Acid 3.7 mg/dL (2.3-6.6)
[2020-05-16] MEDS: Magnesium Hydroxide LIQ 30 ML UDC PO PRN (16:37)
[2020-05-16] MEDS: cefTRIAXone 2 GM ADDV.VIAL 2 GM in NS 0.9% 100 ml BAG 100 ML IV SCH (20:03)
[2020-05-16] MEDS: Senna TAB 8.6 mg TAB PO PRN (21:05)
[2020-05-17 07:00] LABS: ABS Basophils 0.1 10^3/ul (0-0.2); ABS Eosinophils 0.4 10^3/ul (0-0.6); ABS Lymphocytes 1.7 10^3/ul (1.0-4.8); ABS Monocytes 1.1 10^3/ul (0-0.8); Eosinophil % 4.5 %; Hematocrit 37 % (35-47); Hemoglobin 12.8 g/dL (12.0-16.0); Lymphocyte % 18.1 %; Mean Corpuscular HGB Conc 34 g/dL (31-36); Mean Corpuscular Hemoglobin 32 pg (27-31); Mean Corpuscular Volume 93 fL (80-97); Mean Platelet Volume 8.5 fL (7.4-10.4); Platelet Count 296 10^3/uL (150-450); Red Blood Count 3.98 10^6 /uL (3.70-4.87); Red Cell Distribution Width 13 % (10-15); White Blood Count 9.2 10^3/uL (3.5-10.8)
[2020-05-17 07:17] LABS: C Reactive Protein 129.53 mg/L (<8.01); Calcium 8.3 mg/dL (8.6-10.3); EGFR African American 97.9 (>60); EGFR Non-African American 80.9 (>60); Magnesium 1.9 mg/dL (1.9-2.7); Potassium 3.5 mmol/L (3.5-5.0)
[2020-05-17] MEDS: Magnesium Hydroxide LIQ 30 ML UDC PO PRN (08:53)
[2020-05-17] MEDS: Aspirin EC 81 mg TAB.EC (enteric coated) PO SCH (08:54)
[2020-05-17] MEDS: cefTRIAXone 2 GM ADDV.VIAL 2 GM in NS 0.9% 100 ml BAG 100 ML IV SCH (20:03)
[2020-05-18 06:23] LABS: Hematocrit 38 % (35-47); Hemoglobin 13.2 g/dL (12.0-16.0); Mean Corpuscular HGB Conc 35 g/dL (31-36); Mean Corpuscular Hemoglobin 32 pg (27-31); Mean Corpuscular Volume 93 fL (80-97); Mean Platelet Volume 8.1 fL (7.4-10.4); Platelet Count 353 10^3/uL (150-450); Red Cell Distribution Width 14 % (10-15); White Blood Count 8.8 10^3/uL (3.5-10.8)
[2020-05-18 06:41] LABS: BUN/Creatinine Ratio 17.8 (8-20); C Reactive Protein 97.18 mg/L (<8.01); Calcium 8.6 mg/dL (8.6-10.3); EGFR African American 93.3 (>60); EGFR Non-African American 77.1 (>60); Magnesium 1.9 mg/dL (1.9-2.7); Potassium 3.7 mmol/L (3.5-5.0)
[2020-05-18] MEDS: Aspirin EC 81 mg TAB.EC (enteric coated) PO SCH ×2 (08:29→08:37)
[2020-05-19] MEDS: Aspirin EC 81 mg TAB.EC (enteric coated) PO SCH (09:11)
[2020-05-19 18:57] LABS: B. garinii/B. afzellii PCR Negative (Negative); Lyme Disease Source SYNOVIAL FLUID
[2020-05-20] MEDS: Aspirin EC 81 mg TAB.EC (enteric coated) PO SCH (08:07)
[2020-05-21 07:49] VITALS: BP 123/57
[2020-05-21] MEDS: Aspirin EC 81 mg TAB.EC (enteric coated) PO SCH (07:57)
== END 2020-05-21 13:20 | DRG 872 ==
LOC: MED 21:04 → ED 21:04 → OBSVTOIN 23:25 → MED 05-12 03:03
PROVIDERS: ADMIT Hospitalist; ATTEND Internal Medicine

== ENCOUNTER 2020-07-05 14:17 | Inpatient (IN) ==
[2020-07-05 15:46] LABS: ABS Basophils 0.1 10^3/ul (0-0.2); ABS Eosinophils 0.2 10^3/ul (0-0.6); ABS Lymphocytes 1.7 10^3/ul (1.0-4.8); ABS Monocytes 0.7 10^3/ul (0-0.8); ABS Neutrophils 4.7 10^3/ul (1.5-7.7); Eosinophil % 2.9 %; Hematocrit 43 % (35-47); Hemoglobin 14.4 g/dL (12.0-16.0); Lymphocyte % 23.3 %; Mean Corpuscular HGB Conc 33 g/dL (31-36); Mean Corpuscular Hemoglobin 32 pg (27-31); Mean Corpuscular Volume 96 fL (80-97); Mean Platelet Volume 7.9 fL (7.4-10.4); Platelet Count 346 10^3/uL (150-450); Red Blood Count 4.52 10^6 /uL (3.70-4.87); Red Cell Distribution Width 14 % (10-15); White Blood Count 7.5 10^3/uL (3.5-10.8)
[2020-07-05 15:57] LABS: INR 2.12 (0.82-1.09)
[2020-07-05 16:02] LABS: Troponin I 0.01 ng/mL (<0.03)
[2020-07-05 16:12] LABS: ALT 9 U/L (7-52); AST 17 U/L (13-39); Albumin 4.3 g/dL (3.2-5.2); Albumin/Globulin Ratio 1.5 (1-3); Alkaline Phosphatase 83 U/L (34-104); Anion Gap 7 mmol/L (2-11); BUN/Creatinine Ratio 15.4 (8-20); Blood Urea Nitrogen 14 mg/dL (6-24); CO2 Carbon Dioxide 29 mmol/L (22-32); Calcium 9.9 mg/dL (8.6-10.3); Chloride 104 mmol/L (101-111); EGFR African American 72.3 (>60); EGFR Non-African American 59.8 (>60); Globulin 2.9 g/dL (2-4); Glucose 90 mg/dL (70-100); Potassium 4.2 mmol/L (3.5-5.0); Sodium 140 mmol/L (135-145); Total Protein 7.2 g/dL (6.4-8.9)
[2020-07-05 16:47] LABS: Acetaminophen < 15 mcg/mL; Alcohol, S < 10 mg/dL (<10); Salicylate < 2.50 mg/dL (<30)
[2020-07-05 17:00] LABS: TSH Ultra Thyroid Stim Horm 1.76 mcIU/mL (0.34-5.60)
[2020-07-05 17:34] LABS: Urine Appearance Cloudy; Urine Bilirubin Negative (Negative); Urine Blood 1+ (Negative); Urine Color Straw; Urine Glucose Negative (Negative); Urine Ketones Negative (Negative); Urine Nitrite Negative (Negative); Urine Protein Negative (Negative); Urine Specific Gravity 1.005 (1.010-1.030); Urine Urobilinogen Negative (Negative)
[2020-07-05 17:42] LABS: Urine Bacteria Absent (Absent); Urine Red Blood Cell Absent (Absent); Urine Squamous Epithelial Cell Present (Absent); Urine White Blood Cell Absent (Absent)
[2020-07-05] MEDS ORDERED: Labetalol IV 5 MG/ML 20 ml VIAL IV PUSH PRN (23:48)
[2020-07-06] MEDS ORDERED: hydrALAZINE 20 mg/ml 1 ML Vial IV IV SLOW PU PRN (07:35)
[2020-07-06] MEDS: Cholecalciferol (VIT D3) 1,000 unit TAB PO SCH (07:56)
[2020-07-07] MEDS: Cholecalciferol (VIT D3) 1,000 unit TAB PO SCH (08:03)
[2020-07-08] MEDS: Cholecalciferol (VIT D3) 1,000 unit TAB PO SCH (07:10)
[2020-07-09 04:08] VITALS: BP 156/56
[2020-07-09] MEDS: Cholecalciferol (VIT D3) 1,000 unit TAB PO SCH (10:06)
== END 2020-07-09 11:15 ==
LOC: ED 14:17 → MEDTELE 19:39
PROVIDERS: ADMIT Internal Medicine; ATTEND Internal Medicine